=== PATIENT | male | born 1970 | race Caucasian/White ===

== ENCOUNTER 2017-06-12 13:43 | Emergency (ER) | payer OTHER ==
[~2017-06-12] VITALS: Ht 177.8 cm; Wt 106.1 kg
[~2017-06-12 13:43] MED LIST: GLUC750T22 PO; NAPR-576 PO; TAB-TAB PO; Z.0.NO CURRENT MEDS
[2017-06-12 13:52] VITALS: BP 146/97; PULSE 84; RESP 18; TEMP 98.6; O2SAT 96
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
[2017-06-12] MEDS ORDERED: IBUPROFEN 600 MG TAB PO ONE (16:00)
== END 2017-06-12 16:03 | disposition home or self-care (01) ==
LOC: PHEFT 13:43
DX: M54.89 Other dorsalgia (principal); V89.2XXA Person injured in unspecified motor-vehicle accident, traffic, initial encounter
CPT/HCPCS: 99282